=== PATIENT | male | born 1990 | race Two or more races ===

== ENCOUNTER 2020-07-27 21:04 | Emergency (ER) | payer MEDICAID, OTHER ==
[~2020-07-27] VITALS: Ht 175.3 cm; Wt 67.3 kg
[2020-07-27 21:06] VITALS: BP 125/82
== END 2020-07-27 23:56 | disposition home or self-care (01) ==
LOC: ED 22:00
DX: S61.210A Laceration without foreign body of right index finger without damage to nail, initial encounter (principal); L03.012 Cellulitis of left finger; R11.2 Nausea with vomiting, unspecified; R53.83 Other fatigue; Z87.891 Personal history of nicotine dependence; W45.8XXA Other foreign body or object entering through skin, initial encounter; Y93.89 Activity, other specified; Y92.89 Other specified places as the place of occurrence of the external cause; Y99.8 Other external cause status
CPT/HCPCS: 99283